=== PATIENT | female | born 1960 | race Caucasian/White ===

== ENCOUNTER 2022-10-27 17:36 | Emergency (ER) | payer OTHER, SELFPAY ==
[2022-10-27 17:56] VITALS: BP 156/85; PULSE 92; RESP 18; TEMP 36.1; O2SAT 97
--- NOTE | 2022-10-27 18:04 | ED.GENADULT ---
HPI - General Adult General Chief complaint: Laceration/Wound Stated complaint: Finger Lac Time Seen by Provider: 10/27/22 17:38 History of Present Illness HPI narrative: Patient is a 62-year-old female cut her top of her PIP joint area just this superficial skin with a ga-knife today covered with bacitracin cleaned out. She has been having full mobility of the finger and it has not opened. It has healed nicely it is not really gaping and it is not bleeding any longer. She is up-to-date on tetanus within last couple months has had no trouble with wound healing Related Data Allergies Allergy/AdvReac Type Severity Reaction Status Date / Time bee venom protein (honey bee) Allergy Verified 10/27/22 17:56 morphine Allergy Verified 10/27/22 17:56 Review of Systems Status of ROS: Reports: 6 or more systems reviewed and unremarkable except as noted in History and below [facility] Social History Smoking Status: Never smoker Non-prescribed substance use: denies use Exam Narrative: Exam Narrative: Objective: Vital signs show slightly elevated blood pressure On her left index finger dorsum PIP area she has got fairly small 1/2 cm laceration is well approximated distal CMS of the fingers normal range of motions normal Procedure after sterile scrub with Dermabond applied in several layers Const: Vital Signs, click to edit/add: Vital Signs - 24 hr 10/27/22 17:56 Temperature 97.0 F L Pulse Rate [Pulse Oximeter] 92 Respiratory Rate 18 Blood Pressure [Le ft Forearm] 156/85 H Pulse Oximetry 97 Oxygen Delivery Me thod Room Air Course Vital Signs Vital signs: Initial Vital Signs Temperature 97.0 F L 10/27/22 17:56 Temperature Source Temporal Artery Scan 10/27/22 17:56 Pulse Rate 92 10/27/22 17:56 Pulse Rhythm Regular 10/27/22 17:56 Respiratory Rate 18 10/27/22 17:56 Blood Pressure 156/85 H 10/27/22 17:56 Blood Pressure Mean 108 H 10/27/22 17:56 Blood Pressure Position Sitting 10/27/22 17:56 Pulse Oximetry 97 10/27/22 17:56 Oxygen Delivery Method Room Air 10/27/22 17:56 Vital Signs Temperature 97.0 F L 10/27/22 17:56 Pulse Rate 92 10/27/22 17:56 Respiratory Rate 18 10/27/22 17:56 Blood Pressure 156/85 H 10/27/22 17:56 Pulse Oximetry 97 10/27/22 17:56 Oxygen Delivery Method Room Air 10/27/22 17:56 Temperature 97.0 F L 10/27/22 17:56 Pulse Rate 92 10/27/22 17:56 Respiratory Rate 18 10/27/22 17:56 Blood Pressure 156/85 H 10/27/22 17:56 Pulse Oximetry 97 10/27/22 17:56 Oxygen Delivery Method Room Air 10/27/22 17:56 Medical Decision Making MDM Narrative Medical decision making narrative: Keep hand dry for 2-3 days, watch for redness infection, your update on tetanus by your report. Return if problems or concerns. Discharge Plan Discharge Clinical Impression: Laceration Patient Disposition: Home w/ Parent or Adult Condition: Improved Additional Instructions: Keep the hand dry for at least 2-3 days, watch for redness infection, return as needed. Activity Level: Light activity Discharge Diet: Regular Stand Alone Forms: [facility] Info Instructions
== END 2022-10-27 18:18 | disposition home or self-care (01) ==
LOC: ED 18:12
PROVIDERS: Emergency Provider Family Medicine; PCP Family Medicine
DX: S61.211A Laceration without foreign body of left index finger without damage to nail, initial encounter (principal); W26.0XXA Contact with knife, initial encounter
CPT/HCPCS: 99282; 99283

== ENCOUNTER 2023-02-01 17:56 | Emergency (ER) | payer OTHER, SELFPAY ==
[2023-02-01 18:06] VITALS: BP 131/85; PULSE 105; RESP 18; TEMP 36.4; O2SAT 97; BMI 30.8
--- NOTE | 2023-02-01 20:29 | ED.FALL ---
HPI - Fall General Time Seen by Provider: 20:29 Date Seen: 02/01/23 Chief Complaint: Fall/Minor Trauma Stated Complaint: Fell, R side pain Time Seen by Provider: 02/01/23 20:28 Source: patient and RN notes reviewed Mode of arrival: ambulatory Limitations: no limitations History of Present Illness HPI Narrative: Patient is a 62-year-old female coming into the ER with complaints of right shoulder pain and arm pain after a fall. She fell earlier today, was caring a backache and tripped, falling on her right side. She fell primarily onto the front of the shoulder. She denies any numbness tingling anywhere. She did hit the front of her chin but denies any headache, there was no loss of consciousness, has no head pain at this time. No neck pain. Does have some low back pain but it is off to the right side, no pain the center of her back. She is not have any pain going down her legs. She has been ambulatory without any significant pain. Her left arm is not bothering her at all. She is having no chest pain, no shortness of breath, no abdominal symptoms. She tried some ibuprofen earlier, did not really help her pain. MD complaint: fall Related Data Home Medications Medication Instructions Recorded Confirmed aspirin 81 mg tablet,delayed 81 mg PO DAILY 02/01/23 02/01/23 release cyclobenzaprine 10 mg tablet 10 mg PO QPM 02/01/23 02/01/23 exenatide microspheres 2 mg/0.85 2 mg subcut 02/01/23 mL subcutaneous auto-injector ([place] BCise) gabapentin 600 mg tablet 600 mg PO 3XD 02/01/23 02/01/23 insulin glargine 100 unit/mL (3 25 unit subcut QPM 02/01/23 02/01/23 mL) subcutaneous pen (Lantus Solostar U-100 Insulin) metformin 1,000 mg tablet 1,000 mg PO BID 02/01/23 02/01/23 simvastatin 20 mg tablet 20 mg PO QPM 02/01/23 02/01/23 Allergies Allergy/AdvReac Type Severity Reaction Status Date / Time bee venom protein (honey bee) Allergy Verified 02/01/23 18:06 morphine Allergy Verified 02/01/23 18:06 Review of Systems Status of ROS: Reports: 6 or more systems reviewed and unremarkable except as noted in History and below [facility] Social History Smoking Status: Never smoker Non-prescribed substance use: denies use Exam Const: Vital Signs, click to edit/add: Vital Signs - 24 hr 02/01/23 18:06 Temperature 97.6 F Pulse Rate [Pulse Oximeter] 105 H Respiratory Rate 18 Blood Pressure [Ri ght Upper Arm] 131/85 Pulse Oximetry 97 Oxygen Delivery Me thod Room Air This 62-year-old female is alert, interactive, no apparent distress, sitting in exam room 4. She is sitting in the chair. She has a little superficial abrasion on the center of her chin. Face is otherwise atraumatic. Conjugate gaze, sclera clear, able speak in complete sentences. Neck is supple, no midline tenderness. No midline tenderness over her entirety of her spine. There is some right muscular tenderness further out over the lumbar muscles, no point bony tenderness over the low back. Patient was ambulatory in the ED of her own accord. Lungs are clear, good air entry no wheezing crackles. CV regular rate and rhythm, no murmur, normal S1-S2. Abdomen is soft, no rebound or guarding, nontender. She has volar ecchymosis and mild abrasion on the forearm, full range of motion about the elbow and wrist but does complain of a little tenderness over the wrist on the volar surface, can see a small bruise there. Fingers and hand unaffected in fully mobile, neurovascular intact. She has decreased range of motion about her shoulder due to pain but shoulder is definitely mobile within the joint. Tenderness distally over the clavicle along the edge of the shoulder. Do not note any joint effusion of the shoulder. Can abduct her to about 70-80 degrees, otherwise complains of pain. Documenting provider has reviewed patient's vital signs: yes Course Course ED Course: This 62-year-old female has had a fall sustained earlier today. We will x-ray her shoulder and her wrist. Seems like this was just from a trip and no other lying medical reason. Will discuss pain management with her once I have seen her x-ray imaging. Reevaluation(s) Time of Reevaluation #1: 21:57 Reevaluation #1: Have given copies of her negative x-ray reports. Discussed that this is musculoskeletal and soft tissue. We did review that the shoulder sometimes can have underlying rotator cuff pathology from falls which I cannot sufficiently diagnosed with any acute injury at this time with her examination. If she is having ongoing issues, she is going to need to follow-up in if there is suspicion of rotator cuff pathology, things like physical therapy or even orthopedic referral may be considered. This time she is stable to discharge. We discussed pain management. She does have cyclobenzaprine that she takes at bedtime every night. Did review with her that if her physician will allow, may need to be taken up to 3 times a day for right now. Do recommend follow-up with primary provider. Vital Signs Vital signs: Initial Vital Signs Temperature 97.6 F 02/01/23 18:06 Temperature Source Temporal Artery Scan 02/01/23 18:06 Pulse Rate 105 H 02/01/23 18:06 Respiratory Rate 18 02/01/23 18:06 Blood Pressure 131/85 02/01/23 18:06 Blood Pressure Mean 100 02/01/23 18:06 Blood Pressure Position Sitting 02/01/23 18:06 Pulse Oximetry 97 02/01/23 18:06 Oxygen Delivery Method Room Air 02/01/23 18:06 Vital Signs Temperature 97.6 F 02/01/23 18:06 Pulse Rate 105 H 02/01/23 18:06 Respiratory Rate 18 02/01/23 18:06 Blood Pressure 131/85 02/01/23 18:06 Pulse Oximetry 97 02/01/23 18:06 Oxygen Delivery Method Room Air 02/01/23 18:06 Temperature 97.6 F 02/01/23 18:06 Pulse Rate 105 H 02/01/23 18:06 Respiratory Rate 18 02/01/23 18:06 Blood Pressure 131/85 02/01/23 18:06 Pulse Oximetry 97 02/01/23 18:06 Oxygen Delivery Method Room Air 02/01/23 18:06 Discharge Plan Discharge Clinical Impression: Acute pain of right shoulder, Acute pain of right wrist, Fall Patient Disposition: Home, Self-Care Condition: Stable Instructions: Wrist Injury (ED), Shoulder Pain (ED) Additional Instructions: Recommend follow-up with your primary care provider in clinic with ongoing concerns. The shoulder continues to bother you, could be rotator cuff issue and may need further outpatient workup, consider physical therapy. Do recommend taking this cyclobenzaprine up to 3 times a day if your primary care provider will allow this. Right now, Tylenol 1000 mg 3 times a day baseline for pain. Can use [id number] anti-inflammatory like ibuprofen or leave per bottle directions as well for pain management. Activity Level: Activity as Tolerated Prescriptions: No Action cyclobenzaprine 10 mg tablet 10 mg PO QPM gabapentin 600 mg tablet 600 mg PO 3XD aspirin 81 mg tablet,delayed release (DR/EC) 81 mg PO DAILY simvastatin 20 mg tablet 20 mg PO QPM metformin 1,000 mg tablet 1,000 mg PO BID insulin glargine [Lantus Solostar U-100 Insulin] 100 unit/mL (3 mL) insulin pen 25 unit subcut QPM Bydureon BCise 2 mg/0.85 mL auto-injector 2 mg subcut Follow Up/Referrals: Craig Linda MD [Primary Care Provider] - Stand Alone Forms: [facility] Info Instructions
--- NOTE | 2023-02-01 20:34 | CRLHL7_ITS ---
For Patients: As a result of the Cures Act, medical imaging exams and procedure reports are released immediately into your electronic medical record. You may view this report before your referring provider. If you have questions, please contact your health care provider. INDICATION: Fall TECHNIQUE: Three views FINDINGS: Normal alignment. No acute fractures or acute osseous abnormalities. IMPRESSION: No acute fracture. Dictated by Chely Joyner MD @ 02/01/2023 9:45:16 PM (Electronically Signed)
--- NOTE | 2023-02-01 20:34 | CRLHL7_ITS ---
For Patients: As a result of the Century Cures Act, medical imaging exams and procedure reports are released immediately into your electronic medical record. You may view this report before your referring provider. If you have questions, please contact your health care provider. INDICATION: Fall TECHNIQUE: Three views right shoulder FINDINGS: Normal articulation of the glenohumeral joint. No fractures or dislocation. AC arthrosis. Dictated by Chely Joyner MD @ 02/01/2023 9:44:44 PM (Electronically Signed)
[2023-02-01 23:11] VITALS: BP 118/78; PULSE 89; RESP 18; TEMP 36.7; O2SAT 97
== END 2023-02-01 23:11 | disposition home or self-care (01) ==
PROVIDERS: Emergency Provider Family Medicine; PCP Family Medicine
DX: M25.511 Pain in right shoulder (principal); M25.531 Pain in right wrist; W18.30XA Fall on same level, unspecified, initial encounter
CPT/HCPCS: 73030; 73110; 99283; 99284

== ENCOUNTER 2023-09-14 16:20 | Emergency (ER) | payer OTHER, SELFPAY ==
[2023-09-14 16:28] VITALS: BP 130/81; PULSE 108; RESP 16; TEMP 36.5; O2SAT 97
--- NOTE | 2023-09-14 17:02 | ED.SKABFB ---
HPI - Skin/Abscess/Foreign Bdy General Chief complaint: Skin/Abscess/Foreign Body Stated complaint: Pain under L arm Time Seen by Provider: 09/14/23 16:36 History of Present Illness HPI narrative: This 63-year-old female comes in with a painful lump in her left axillary region. She states that she has not had something like this in the past. She states that is been present for the past week at least. She does not report any drainage. She is otherwise in her normal health. Related Data Home Medications Medication Instructions Recorded Confirmed aspirin 81 mg tablet,delayed 81 mg PO DAILY 02/01/23 02/01/23 release cyclobenzaprine 10 mg tablet 10 mg PO QPM 02/01/23 02/01/23 exenatide microspheres 2 mg/0.85 2 mg subcut 02/01/23 mL subcutaneous auto-injector (By[employer]iro[employer] BCise) gabapentin 600 mg tablet 600 mg PO 3XD 02/01/23 02/01/23 insulin glargine 100 unit/mL (3 25 unit subcut QPM 02/01/23 02/01/23 mL) subcutaneous pen (Lantus Solostar U-100 Insulin) metformin 1,000 mg tablet 1,000 mg PO BID 02/01/23 02/01/23 simvastatin 20 mg tablet 20 mg PO QPM 02/01/23 02/01/23 Previous Rx's Medication Instructions Recorded cephalexin 500 mg capsule 500 mg PO TID 7 days #21 caps 09/14/23 Allergies Allergy/AdvReac Type Severity Reaction Status Date / Time bee venom protein (honey bee) Allergy Verified 09/14/23 16:27 morphine Allergy Verified 09/14/23 16:27 Review of Systems Status of ROS: Reports: 10 or more systems reviewed and unremarkable except as noted in History and below Narrative: Constitutional: No fevers, no weight gain or loss. Eyes: No discharge. No vision changes. HENT: No congestion, no sore throat, no ear pain. Cardiovascular: No chest pain, no palpitations. Respiratory: No shortness of breath, no wheezes, no cough. Gastrointestinal: No abdominal pain, no vomiting, no diarrhea. Genitourinary: No dysuria, no hematuria. Musculoskeletal: Normal range of motion. Skin: No rashes, no pruritis. Painful lump in the left axillary region. Neurological: No dizziness, weakness, sensory change, speech change. Endo/Heme/Allergies: No bruising or bleeding. No polydipsia. Pysch: no suicidality, no anxiety, no insomnia. All other systems reviewed and are negative. [facility] Social History Smoking Status: Never smoker Second hand tobacco smoke exposure: No How often do you have a drink containing alcohol: never How often do you have six or more drinks on one occasion: Never AUDIT-C Alcohol total score: 0 Non-prescribed substance use: denies use Exam Narrative: Exam Narrative: Constitutional: Well-developed, well-nourished, no acute distress. HEENT: Normocephalic, atraumatic. Neck: Normal range of motion. Nontender. Supple. Heart: Intact distal pulses. Lungs: No chest discomfort. No wheezes, rhonchi, or rales. Abdomen: Nontender. Back: Normal range of motion. Extremities: Normal range of motion. No injury. Skin: Intact. No rash. Warm. Left axillary region has a tender area with some overlying erythema and superficial skin breakdown typical of an underlying abscess. Neurologic: No altered sensation. No weakness. Alert and oriented. Psychiatric: No suicidality. No anxiety or depression. No insomnia. Nursing notes and vitals signs are reviewed. Const: Vital Signs, click to edit/add: Vital Signs - 24 hr 09/14/23 16:28 Temperature 97.7 F Pulse Rate [Pulse Oximeter] 108 H Respiratory Rate 16 Blood Pressure [Ri ght Upper Arm] 130/81 Pulse Oximetry 97 Oxygen Delivery Me thod Room Air Course Vital Signs Vital signs: Initial Vital Signs Temperature 97.7 F 09/14/23 16:28 Temperature Source Temporal Artery Scan 09/14/23 16:28 Pulse Rate 108 H 09/14/23 16:28 Respiratory Rate 16 09/14/23 16:28 Blood Pressure 130/81 09/14/23 16:28 Blood Pressure Mean 97 09/14/23 16:28 Blood Pressure Position High-Fowlers 09/14/23 16:28 Pulse Oximetry 97 09/14/23 16:28 Oxygen Delivery Method Room Air 09/14/23 16:28 Vital Signs Temperature 97.7 F 09/14/23 16:28 Pulse Rate 108 H 09/14/23 16:28 Respiratory Rate 16 09/14/23 16:28 Blood Pressure 130/81 09/14/23 16:28 Pulse Oximetry 97 09/14/23 16:28 Oxygen Delivery Method Room Air 09/14/23 16:28 Temperature 97.7 F 09/14/23 16:28 Pulse Rate 108 H 09/14/23 16:28 Respiratory Rate 16 09/14/23 16:28 Blood Pressure 130/81 09/14/23 16:28 Pulse Oximetry 97 09/14/23 16:28 Oxygen Delivery Method Room Air 09/14/23 16:28 MDM - Skin/Abscess/Foreign Bdy MDM Narrative Medical decision making narrative: This patient comes in with a painful lump in her left axillary region that is suspicious for an abscess. I did use bedside ultrasound to look for enough fluid that could be incised and drained. There is no significant collection of fluid that would be drainable at this time. The patient received a prescription for Keflex and is encouraged use warm compress to help facilitate drainage if possible. Discharge Plan Discharge Clinical Impression: Cutaneous abscess of axilla Patient Disposition: Home, Self-Care Condition: Stable Additional Instructions: Take medication as prescribed. Use [id number] medicines also as needed and directed. Use warm compress to help facilitate drainage of possible. Follow-up with clinic or return if worsening. Prescriptions: New cephalexin 500 mg capsule 500 mg PO TID 7 Days Qty: 21 0RF No Action cyclobenzaprine 10 mg tablet 10 mg PO QPM gabapentin 600 mg tablet 600 mg PO 3XD aspirin 81 mg tablet,delayed release (DR/EC) 81 mg PO DAILY simvastatin 20 mg tablet 20 mg PO QPM metformin 1,000 mg tablet 1,000 mg PO BID insulin glargine [Lantus Solostar U-100 Insulin] 100 unit/mL (3 mL) insulin pen 25 unit subcut QPM Bydureon BCise 2 mg/0.85 mL auto-injector 2 mg subcut Follow Up/Referrals: Craig Linda MD [Primary Care Provider] - Stand Alone [facility]: [facility] Procedures Ultrasound Other exam #1: Anatomical areas examined: Left axilla Indications: Painful lump Description/findings: Cutaneous abscess in the left axillary region with no significant amount of fluid available for draining. Impression: Cutaneous abscess in the left axilla.
== END 2023-09-14 17:35 | disposition home or self-care (01) ==
PROVIDERS: Emergency Provider Emergency Medicine Emergency Medical Services; PCP Family Medicine
DX: L02.412 Cutaneous abscess of left axilla (principal)
CPT/HCPCS: 93971; 99283; 99284